=== PATIENT | female | born 1995 | race Caucasian/White ===

== ENCOUNTER 2020-10-20 06:51 | Outpatient (RCR) | payer BC, MEDICAID, SELFPAY ==
[2020-10-19 09:05] LABS: Glucose 1 Hour PP 50gm Dose 167 mg/dL
[2020-10-19 09:06] LABS: Hematocrit 31.4 % (37.0-47.0); Hemoglobin 10.5 g/dL (12.0-15.0); Mean Corpuscular HGB Conc 33.4 g/dl (32-36); Mean Corpuscular Hemoglobin 29.8 pg (26-34); Mean Corpuscular Volume 89.2 fl (80-100); Mean Platelet Volume 9.8 fl (7.4-10.4); Platelet Count Result 388 k/mm3 (150-375); Red Blood Count 3.52 M/mm3 (4.2-5.4); Red Cell Distribution Width 13.2 % (11.5-14.5); White Blood Count 16.4 K/mm3 (4.5-10.0)
[2020-10-19 09:54] LABS: HIV 1/2 Ab P24 Ag Result Negative (Negative)
[2020-10-19 10:07] LABS: Hepatitis B Surface Antigen Negative (Negative)
[2020-10-20] MEDS: RHO(D) IMMUNE GLOBULIN 300 MCG/2 ML SYRINGE IM (15:00)
== END 2020-10-20 06:52 | disposition home or self-care (01) ==
LOC: ANHLAB 06:51
PROVIDERS: Visit Provider Obstetrics & Gynecology
DX: Z29.13 Encounter for prophylactic Rho(D) immune globulin (principal); Z11.4 Encounter for screening for human immunodeficiency virus [HIV]; O36.0110 Maternal care for anti-D [Rh] antibodies, first trimester, not applicable or unspecified; Z3A.00 Weeks of gestation of pregnancy not specified
CPT/HCPCS: 36415; 82947; 85027; 85461; 86703; 87340; 90384; 96372; G0432; J2790

== ENCOUNTER 2020-10-25 07:03 | Outpatient (CLI) | payer BC, MEDICAID, SELFPAY ==
[2020-10-25 07:57] LABS: Glucose Fasting Gestational 102 mg/dL (>/=95)
[2020-10-25 09:25] LABS: Glucose 1 Hour Gest 162 mg/dL (>/=180)
[2020-10-25 10:26] LABS: Glucose 2 Hour Gest 184 mg/dL (>/= 155)
[2020-10-25 11:23] LABS: Glucose 3 Hour Gest 123 mg/dL (>/=140)
== END 2020-10-25 07:04 | disposition home or self-care (01) ==
PROVIDERS: Visit Provider Obstetrics & Gynecology
DX: Z34.01 Encounter for supervision of normal first pregnancy, first trimester (principal); Z3A.00 Weeks of gestation of pregnancy not specified
CPT/HCPCS: 36415; 82951; 82952

== ENCOUNTER 2020-10-26 10:30 | Observation (INO) | payer BC, MEDICAID, SELFPAY ==
[2020-10-26 10:52] VITALS: BMI 37.7
[2020-10-26 10:57] VITALS: BP 120/77; PULSE 102
[2020-10-26 11:00] VITALS: BP 118/73; PULSE 97
[2020-10-26 11:15] VITALS: BP 113/75; PULSE 95
[2020-10-26 11:30] VITALS: BP 115/71; PULSE 90
[2020-10-26 11:45] VITALS: BP 110/69; PULSE 96
[2020-10-26 11:45] LABS: Glucose Point of Care 73 mg/dl (65-105)
[2020-10-26] MEDS: ACETAMINOPHEN 500 MG TABLET 1000 MG PO (11:53)
[2020-10-26] MEDS: LACTATED RINGERS 1,000 ML 125 ML IV CONT (11:54)
--- NOTE | 2020-10-26 13:04 | OBADM ---
This patient, Lillie Rivera, admitted to the OB room [facility] for observation. Patient/family oriented to hospital policies and general routines including ID bracelet, bed and alarms, visiting hours, pain management, procedures, bathroom and other care routines, personal items, smoking policy, room service/diet, and visiting hours. Patient/Family are encouraged to report perceived risks to care and to ask questions if they do not understand what they are told or what they should do.
[2020-10-26 13:21] VITALS: BP 118/73; PULSE 107
[2020-10-26 14:12] LABS: Glucose Point of Care 90 mg/dl (65-105)
--- NOTE | 2020-10-26 14:17 | PC.NURSE ---
1415--Reported pt status to Dr. Burnham. DC orders given.
--- NOTE | 2020-11-01 07:26 | PM.OBTRLD ---
OB - Triage/Final Diagnosis Visit Information Comments/Additional reasons for admission: I have assessed the risk for this patient, Lillie Rivera, and determined that she would benefit from observation care. Evaluation Laboratory results: Laboratory Tests 10/26/20 10/26/20 11:35 14:09 POC Capillary Glucose 73 90 Final Diagnosis (1) Nausea: Code(s): R11.0 - Nausea Status: Acute (2) Headache: Code(s): R51.9 - Headache, unspecified Status: Acute (3) Gestational diabetes: Code(s): O24.419 - Gestational diabetes mellitus in , unspecified control Status: Acute
== END 2020-10-26 14:28 | disposition home or self-care (01) ==
PROVIDERS: Admitting Provider Obstetrics & Gynecology; Visit Provider Obstetrics & Gynecology
DX: O24.419 Gestational diabetes mellitus in pregnancy, unspecified control (principal); O21.0 Mild hyperemesis gravidarum; Z3A.28 28 weeks gestation of pregnancy; R51.9 Headache, unspecified
CPT/HCPCS: 59025; 82948; A9270; G0378; G0379; J7120